=== PATIENT | male | born 1955 | race Hispanic/Latino ===

== ENCOUNTER → 2019-05-06 | Day surgery (SDC) | payer BC ==
[~2019-05-06] MED LIST: LIDOCAINE HCL 2% LOCAL INJ 5 ML SDV VIAL INJ ONE; NAPROXEN250 MG PO; PANTOPRAZOLE SO40 MG PO; PROPOFOL IV EMULSION 10 MG/ML 50 ML VIAL ONE
[2019-05-06 07:20] VITALS: BP 117/84
== END | disposition home or self-care (01) ==
LOC: OR 05:20
PROVIDERS: ATTEND Internal Medicine Gastroenterology
DX: Z12.11 Encounter for screening for malignant neoplasm of colon (principal); K57.30 Diverticulosis of large intestine without perforation or abscess without bleeding; K64.8 Other hemorrhoids; K21.9 Gastro-esophageal reflux disease without esophagitis; Z71.3 Dietary counseling and surveillance; E66.3 Overweight; Z01.810 Encounter for preprocedural cardiovascular examination; Z68.28 Body mass index [BMI] 28.0-28.9, adult
CPT/HCPCS: 45378; 93005; J2001

== ENCOUNTER → 2022-05-01 | Day surgery (SDC) | payer MEDICARE ==
[2022-04-28 09:53] LABS: BASOPHILS % 0.3 % (0.0-1.0); EOSINOPHILS # (AUTO) 0.1 (0.0-0.4); EOSINOPHILS % 0.9 % (0.0-6.0); HEMATOCRIT 50.6 % (38.2-49.6); HEMOGLOBIN 16.3 g/dL (14.0-18.0); LYMPHOCYTES # (AUTO) 2.1 (1.0-3.2); LYMPHOCYTES % 35.7 % (18.0-39.1); MEAN CORPUSCULAR HGB CONC 32.2 g/dL (31-35); MONOCYTES # (AUTO) 0.4 (0.2-0.8); MONOCYTES % 6.1 % (4.4-11.3); NEUTROPHILS # (AUTO) 3.3 (2.1-6.9); NEUTROPHILS % 56.7 % (38.7-80.0); PLATELET COUNT 183 x10e3/uL (140-360); RED BLOOD COUNT 5.44 x10e6/uL (4.3-5.7); RED CELL DISTRIBUTION WIDTH 12.6 % (11.7-14.4)
[~2022-05-01] MED LIST changes: +B12-FOLIC ACID1 EACH PO; +FENTANYL CITRATE/PF 100MCG/2 ML INJ ONE; +GLYCOPYRROLATE INJ 0.2 MG/ML VIAL ONE; +LISINOPRIL2.5 MG PO; +POVIDONE IODINE 0.05% 0.05 % ML PO ONE; +PROPOFOL IV EMULSION 10 MG/ML 20 ML VIAL ONE; -PROPOFOL IV EMULSION 10 MG/ML 50 ML VIAL ONE
[2022-05-01 09:00] VITALS: BP 101/65
== END | disposition home or self-care (01) ==
LOC: OR 06:17
PROVIDERS: ATTEND Internal Medicine Gastroenterology
DX: K29.50 Unspecified chronic gastritis without bleeding (principal); K22.70 Barrett's esophagus without dysplasia; B96.81 Helicobacter pylori [H. pylori] as the cause of diseases classified elsewhere; K44.9 Diaphragmatic hernia without obstruction or gangrene; K21.9 Gastro-esophageal reflux disease without esophagitis; K76.0 Fatty (change of) liver, not elsewhere classified; I10 Essential (primary) hypertension; Z01.810 Encounter for preprocedural cardiovascular examination; Z01.812 Encounter for preprocedural laboratory examination; Z79.1 Long term (current) use of non-steroidal anti-inflammatories (NSAID); Z79.899 Other long term (current) drug therapy; Z87.891 Personal history of nicotine dependence
CPT/HCPCS: 36415; 43239; 85025; 88305; 88342; 93005; J2001; J2704; J3010; 88312